=== PATIENT | female | born 1975 | race Asian ===

== ENCOUNTER → 2023-07-19 17:12 | Outpatient (REF) | payer OTHER, SELFPAY | LOC: WDC 17:12 | PROVIDERS: ATTENDING PHYSICIAN Student in an Organized Health Care Education/Training Program | DX: Z12.31 Encounter for screening mammogram for malignant neoplasm of breast (principal) | CPT/HCPCS: 77063; 77067 ==

== ENCOUNTER → 2024-05-29 07:33 | Outpatient (REF) | payer BC, SELFPAY | LOC: RAD 07:33 | PROVIDERS: ATTENDING PHYSICIAN Physician Assistant Medical | DX: R10.11 Right upper quadrant pain (principal) | CPT/HCPCS: 71046; 76700 ==